=== PATIENT | male | born 1960 | race Caucasian/White ===

== ENCOUNTER 2024-12-30 14:24 | Inpatient (IN) | payer OTHER ==
[~2024-12-30] VITALS: Ht 167.6 cm; Wt 66.9 kg
[~2024-12-30 14:24] MED LIST: CARB1TAB36 PO; DONE-52 PO; FAMO20 PO; LEVE-71 PO; MELA5TAB40 PO; SERT-158 PO; TAMS0.4C94 PO
[2024-12-30] MEDS ORDERED: GABA-1181 PO (14:38)
[2024-12-30] MEDS ORDERED: LOSA-382 PO (14:38)
[2024-12-30] MEDS ORDERED: SERT-162 PO (14:38)
[2024-12-30] MEDS ORDERED: ATOR40TA28 PO (14:38)
[2024-12-30] MEDS ORDERED: HYDR12.54 PO (14:38)
[2024-12-30 15:57] LABS: PLATELET COUNT (AUTO) 169 K/uL (150-450); RED BLOOD CELL COUNT(AUTO) 4.12 MIL/uL (4.50-5.90); RED CELL DISTRIBUTION WIDTH 13.9 % (11.5-14.5); WHITE BLOOD COUNT (AUTO) 7.1 K/uL (4.5-11.0)
[2024-12-30 16:09] LABS: CALCIUM, TOTAL 8.9 mg/dL (8.8-10.5); CREATININE 0.77 mg/dL (0.60-1.30); GLOMERULAR FILTR. RATE CALC > 60 mL/min (>60); GLUCOSE,RANDOM 110 mg/dL (70-110); SODIUM SERUM 143 mmol/L (136-145); UREA NITROGEN, BLOOD 20 mg/dL (7-18)
[2024-12-30 16:18] LABS: TROPONIN I-HIGH SENSITIVITY 5 ng/L (<76)
[2024-12-30] MEDS: LevETIRAcetam 1,000 MG in DEXTROSE 5%-WATER 100 ML IV ONE (16:24)
[2024-12-30] MEDS ORDERED: BISACODYL 10 MG RECTAL RECTAL SUPPOSITORY PR PRN (21:00)
[2024-12-30] MEDS ORDERED: ACETAMINOPHEN 325 MG TABLET PO PRN (21:00)
[2024-12-30] MEDS ORDERED: MAGNESIUM HYDROXIDE SUSPENSION 30 ML UDCUP PO PRN (21:00)
[2024-12-30] MEDS: DOCUSATE SODIUM 100 MG CAPSULE PO SCH (21:00)
[2024-12-30] MEDS ORDERED: ONDANSETRON HCL 4 MG/2 ML VIAL IVP PRN (21:00)
[2024-12-30] MEDS ORDERED: MORPHINE SULFATE 4 MG/ML SYRINGE IVP PRN (21:00)
[2024-12-30] MEDS ORDERED: HYDROCODONE/ACETAMINOPHEN 5-325 MG TABLET PO PRN (21:00)
[2024-12-30] MEDS: GABAPENTIN 300 MG CAPSULE PO SCH (21:55)
[2024-12-30] MEDS: CARBIDOPA/LEVODOPA 25-100 MG TABLET PO SCH (21:56)
[2024-12-30 22:42] VITALS: BP 137/82; PULSE 77; RESP 17; TEMP 98.6; O2SAT 97
[2024-12-31] VITALS (10 sets, daily range): BP systolic 80–147; BP diastolic 46–96; PULSE 66–94; RESP 14–18; TEMP 98–98.6; O2SAT 94–98
[2024-12-31] MEDS: HEPARIN SODIUM,PORCINE 5,000 UNITS/ML VIAL SQ SCH (00:18)
[2024-12-31 05:57] LABS: PLATELET COUNT (AUTO) 169 K/uL (150-450); RED BLOOD CELL COUNT(AUTO) 4.06 MIL/uL (4.50-5.90); RED CELL DISTRIBUTION WIDTH 13.7 % (11.5-14.5); WHITE BLOOD COUNT (AUTO) 6.1 K/uL (4.5-11.0)
[2024-12-31 06:08] LABS: CALCIUM, TOTAL 8.5 mg/dL (8.8-10.5); CREATININE 0.68 mg/dL (0.60-1.30); GLOMERULAR FILTR. RATE CALC > 60 mL/min (>60); GLUCOSE,RANDOM 94 mg/dL (70-110); SODIUM SERUM 144 mmol/L (136-145); UREA NITROGEN, BLOOD 21 mg/dL (7-18)
[2024-12-31] MEDS: SERTRALINE HCL 100 MG TABLET PO SCH (08:16)
[2024-12-31] MEDS: PANTOPRAZOLE SODIUM 40 MG DR TABLET PO SCH (08:16)
[2024-12-31] MEDS: LOSARTAN POTASSIUM 50 MG TABLET PO SCH (08:17)
[2024-12-31] MEDS: TAMSULOSIN HCL 0.4 MG CAPSULE PO SCH (08:17)
[2024-12-31] MEDS: ATORVASTATIN CALCIUM 40 MG TABLET PO SCH (08:18)
[2024-12-31] MEDS: SODIUM CHLORIDE 0.9% 500 ML IV ONE (12:06)
[2024-12-31 20:49] LABS: APPEARANCE,URINE CLEAR (CLEAR); GLUCOSE, URINE (UA) NEGATIVE (NEGATIVE); LEUKOCYTE ESTERASE ,URINE NEGATIVE (NEGATIVE); NITRATE,URINE NEGATIVE (NEGATIVE); OCCULT BLOOD,URINE NEGATIVE (NEGATIVE); SPECIFIC GRAVITIY, URINE 1.021 (1.003-1.030)
[2024-12-31 21:00] LABS: SQUAMOUS EPITHELIAL CELL,UR Rare /LPF (None Seen)
[2025-01-01 00:26] VITALS: BP 119/65; PULSE 76; RESP 16; TEMP 98.2; O2SAT 93
[2025-01-01 01:07] LABS: HEPATITIS C AB (EIA) Non Reactive (Non Reactive)
[2025-01-01 04:51] VITALS: BP 128/76; PULSE 65; RESP 16; TEMP 97.7; O2SAT 94
[2025-01-01 06:05] LABS: PLATELET COUNT (AUTO) 158 K/uL (150-450); RED BLOOD CELL COUNT(AUTO) 3.80 MIL/uL (4.50-5.90); RED CELL DISTRIBUTION WIDTH 14.0 % (11.5-14.5); WHITE BLOOD COUNT (AUTO) 5.6 K/uL (4.5-11.0)
[2025-01-01 06:11] LABS: CALCIUM, TOTAL 8.5 mg/dL (8.8-10.5); CREATININE 0.62 mg/dL (0.60-1.30); GLOMERULAR FILTR. RATE CALC > 60 mL/min (>60); GLUCOSE,RANDOM 101 mg/dL (70-110); SODIUM SERUM 143 mmol/L (136-145); UREA NITROGEN, BLOOD 23 mg/dL (7-18)
[2025-01-01] MEDS ORDERED: DEXTROSE 50%-WATER 25 GM/50 ML SYRINGE IVP PRN (10:30)
[2025-01-01 11:55] VITALS: BP 129/79; PULSE 87; RESP 18; TEMP 98; O2SAT 94
[2025-01-01 12:31] LABS: GLUCOMETER DEV NAME(LOC) 5S.2E; GLUCOSE,POINT OF CARE 112 MG/DL (70-110)
[2025-01-01 16:15] VITALS: BP 99/61; PULSE 79; RESP 19; TEMP 98.8; O2SAT 95
[2025-01-01 20:51] VITALS: BP 107/61; PULSE 78; RESP 18; TEMP 98.2; O2SAT 96
[2025-01-01 22:36] LABS: GLUCOMETER DEV NAME(LOC) 5S.2E; GLUCOSE,POINT OF CARE 117 MG/DL (70-110)
[2025-01-02] VITALS (8 sets, daily range): BP systolic 66–151; BP diastolic 46–84; PULSE 64–85; RESP 18–19; TEMP 97.5–98.2; O2SAT 95–97
[2025-01-02] MEDS: ZOLPIDEM TARTRATE 5 MG TABLET PO PRN (00:28)
[2025-01-02 05:45] LABS: GLUCOMETER DEV NAME(LOC) 5N.1D; GLUCOSE,POINT OF CARE 113 MG/DL (70-110)
[2025-01-02 06:30] LABS: PLATELET COUNT (AUTO) 170 K/uL (150-450); RED BLOOD CELL COUNT(AUTO) 4.06 MIL/uL (4.50-5.90); RED CELL DISTRIBUTION WIDTH 13.7 % (11.5-14.5); WHITE BLOOD COUNT (AUTO) 5.2 K/uL (4.5-11.0)
[2025-01-02 06:59] LABS: CALCIUM, TOTAL 8.8 mg/dL (8.8-10.5); CREATININE 0.77 mg/dL (0.60-1.30); GLOMERULAR FILTR. RATE CALC > 60 mL/min (>60); GLUCOSE,RANDOM 102 mg/dL (70-110); SODIUM SERUM 139 mmol/L (136-145); UREA NITROGEN, BLOOD 23 mg/dL (7-18)
[2025-01-02] MEDS ORDERED: POTASSIUM CHL 10 MEQ/WATER 50 ML IV PRN (10:45)
[2025-01-02] MEDS: POTASSIUM CHLORIDE 20 MEQ ER TABLET PO PRN (14:07)
[2025-01-02 14:16] LABS: GLUCOMETER DEV NAME(LOC) 5S.1E; GLUCOSE,POINT OF CARE 117 MG/DL (70-110)
[2025-01-02 14:16] LABS: GLUCOMETER DEV NAME(LOC) 5S.1E; GLUCOSE,POINT OF CARE 111 MG/DL (70-110)
[2025-01-02] MEDS: INSULIN LISPRO 100 UNITS/ML SQ PRN (17:42)
[2025-01-02 18:35] LABS: GLUCOMETER DEV NAME(LOC) 5S.1E; GLUCOSE,POINT OF CARE 163 MG/DL (70-110)
[2025-01-02] MEDS: RINGERS SOLUTION,LACTATED 500 ML IV ONE (21:22)
[2025-01-02] MEDS: MIDODRINE HCL 2.5 MG TABLET PO SCH (21:23)
[2025-01-03] VITALS (7 sets, daily range): BP systolic 63–160; BP diastolic 43–92; PULSE 61–90; RESP 18; TEMP 97.5–98.8; O2SAT 95–100
[2025-01-03 06:51] LABS: GLUCOMETER DEV NAME(LOC) 5S.1E; GLUCOSE,POINT OF CARE 124 MG/DL (70-110)
[2025-01-03 07:01] LABS: PLATELET COUNT (AUTO) 178 K/uL (150-450); RED BLOOD CELL COUNT(AUTO) 4.30 MIL/uL (4.50-5.90); RED CELL DISTRIBUTION WIDTH 14.1 % (11.5-14.5); WHITE BLOOD COUNT (AUTO) 5.6 K/uL (4.5-11.0)
[2025-01-03 07:54] LABS: CALCIUM, TOTAL 8.7 mg/dL (8.8-10.5); CREATININE 0.90 mg/dL (0.60-1.30); GLOMERULAR FILTR. RATE CALC > 60 mL/min (>60); GLUCOSE,RANDOM 97 mg/dL (70-110); SODIUM SERUM 140 mmol/L (136-145); UREA NITROGEN, BLOOD 22 mg/dL (7-18)
[2025-01-03 11:56] LABS: GLUCOMETER DEV NAME(LOC) 5S.2E; GLUCOSE,POINT OF CARE 107 MG/DL (70-110)
[2025-01-03] MEDS ORDERED: SODIUM CHLORIDE 0.9% 250 ML IV PRN (16:15)
[2025-01-03 19:06] LABS: GLUCOMETER DEV NAME(LOC) 6N.1C; GLUCOSE,POINT OF CARE 113 MG/DL (70-110)
[2025-01-03] MEDS: MIDODRINE HCL 5 MG TABLET PO SCH (21:37)
[2025-01-04 05:32] VITALS: BP 116/95; PULSE 68; RESP 18; TEMP 98.2; O2SAT 97
[2025-01-04 05:56] LABS: GLUCOMETER DEV NAME(LOC) 6N.1C; GLUCOSE,POINT OF CARE 104 MG/DL (70-110)
[2025-01-04 08:00] VITALS: BP 147/77; PULSE 75; RESP 19; TEMP 98.9; O2SAT 97
[2025-01-04 12:11] LABS: GLUCOMETER DEV NAME(LOC) 6N.1C; GLUCOSE,POINT OF CARE 105 MG/DL (70-110)
[2025-01-04] MEDS ORDERED: LEVE250T81 PO (12:29)
[2025-01-04] MEDS ORDERED: MIDO5TAB29 PO (12:29)
[2025-01-04 16:00] VITALS: BP 143/86; PULSE 78; RESP 20; TEMP 98.2; O2SAT 98
[2025-01-04 21:16] LABS: GLUCOMETER DEV NAME(LOC) 6N.1C; GLUCOSE,POINT OF CARE 107 MG/DL (70-110)
== END 2025-01-04 19:00 | disposition home health service (06) | DRG 74 ==
LOC: EMS 14:31 → EDH 19:47 → 5N 22:24 → 6S 01-03 06:45
PROVIDERS: ADMIT Internal Medicine; ATTEND Internal Medicine
PROC: 4A00X4Z Measurement of Central Nervous Electrical Activity, External Approach (ICD-10-PCS; principal; 2025-01-01)
DX: G90.89 Other disorders of autonomic nervous system (principal); G40.909 Epilepsy, unspecified, not intractable, without status epilepticus; I10 Essential (primary) hypertension; F02.80 Dementia in other diseases classified elsewhere, unspecified severity, without behavioral disturbance, psychotic disturbance, mood disturbance, and anxiety; G20.A1 Parkinson's disease without dyskinesia, without mention of fluctuations; E78.5 Hyperlipidemia, unspecified; N40.0 Benign prostatic hyperplasia without lower urinary tract symptoms; I95.1 Orthostatic hypotension; R53.81 Other malaise; Z79.899 Other long term (current) drug therapy; Z88.6 Allergy status to analgesic agent
CPT/HCPCS: 70450; 80048; 81001; 82962; 83036; 83880; 84132; 84484; 85025; 86803; 87340; 93005; 95816; 96374; 97116; 97162; 97166; 97530; 97535; 99285; J0712; J1644; J7040; J7060; J7120